=== PATIENT | male | born 1945 | race Caucasian/White ===

== ENCOUNTER 2024-03-22 09:52 | Outpatient (CLI) | payer MEDICARE ==
[2024-03-22] MEDS ORDERED: Iopamidol 300 61% 100 ML VIAL FS ONE (10:21)
== END 2024-03-22 09:53 | disposition home or self-care (01) ==
LOC: CSHCT 09:52
PROVIDERS: ATTEND Family Medicine
DX: R14.1 Gas pain (principal); R10.13 Epigastric pain
CPT/HCPCS: 74170; Q9967

== ENCOUNTER 2024-09-08 08:25 | Outpatient (CLI) | payer MEDICARE ==
[2024-09-08] MEDS ORDERED: Magnevist 469MG/ML 20 ML VIAL ONE (10:26)
== END 2024-09-08 08:26 | disposition home or self-care (01) ==
LOC: CSHMRI 08:25
PROVIDERS: ATTEND Physician Assistant Medical
DX: R10.13 Epigastric pain (principal); R63.4 Abnormal weight loss; K59.00 Constipation, unspecified; N28.89 Other specified disorders of kidney and ureter
CPT/HCPCS: 36415; 74183; 76376; 82565

== ENCOUNTER 2025-09-21 14:43 | Emergency (ER) | payer MEDICARE ==
[2025-09-21] MEDS ORDERED: Bacitracin 1 PK ONE (16:47)
== END 2025-09-21 18:16 | disposition home or self-care (01) ==
LOC: CSHERS 14:43
DX: S01.01XA Laceration without foreign body of scalp, initial encounter (principal); S51.011A Laceration without foreign body of right elbow, initial encounter; S81.811A Laceration without foreign body, right lower leg, initial encounter; I10 Essential (primary) hypertension; I25.2 Old myocardial infarction; Z23 Encounter for immunization; Z87.891 Personal history of nicotine dependence; W01.0XXA Fall on same level from slipping, tripping and stumbling without subsequent striking against object, initial encounter
CPT/HCPCS: 12001; 70450; 72125; 90471; 90715

== ENCOUNTER 2025-11-13 10:35 | Outpatient (CLI) | payer MEDICARE | END 2025-11-13 10:36 | disposition home or self-care (01) | LOC: CSHRAD 10:35 | PROVIDERS: ATTEND Internal Medicine Hematology & Oncology | DX: C61 Malignant neoplasm of prostate (principal); C64.2 Malignant neoplasm of left kidney, except renal pelvis; D50.0 Iron deficiency anemia secondary to blood loss (chronic); J90 Pleural effusion, not elsewhere classified; J98.11 Atelectasis; I51.7 Cardiomegaly | CPT/HCPCS: 71046 ==